=== PATIENT | female | born 1950 | race Caucasian/White ===

== ENCOUNTER 2022-11-17 16:15 | Inpatient (IN) ==
[2022-11-17 16:43] LABS: BASOPHILS % (AUTO) 0.5 % (0.2-1.0); EOSINOPHILS # (AUTO) 0.2 x10^3/uL (0.0-0.2); EOSINOPHILS % (AUTO) 2.8 % (0.9-2.9); HEMATOCRIT 31.8 % (36.0-47.0); HEMOGLOBIN 10.7 g/dL (12.0-16.0); LYMPHOCYTES # (AUTO) 1.5 X10^3/uL (1.3-2.9); LYMPHOCYTES % (AUTO) 25.7 % (21.0-51.0); MEAN CORPUSCULAR HEMOGLOBIN 28.1 pg (27.0-34.0); MEAN CORPUSCULAR HGB CONC 33.8 g/dL (33.0-35.0); MEAN PLATELET VOLUME 7.6 fL (7.4-11.0); MONOCYTES # (AUTO) 0.8 x10^3/uL (0.3-0.8); NEUTROPHILS # (AUTO) 3.4 x10^3/uL (2.2-4.8); RED BLOOD COUNT 3.82 X10^6/uL (3.5-5.4); RED CELL DISTRIBUTION WIDTH 15.9 % (11.6-16.5); WHITE BLOOD COUNT 5.9 X10^3/uL (3.6-10.0)
[2022-11-17 16:51] LABS: INR 1.13 (0.8-1.3)
[2022-11-17 16:58] LABS: ALANINE AMINOTRANSFERASE 13 Units/L (12-78); ALBUMIN 3.3 g/dL (3.4-5.0); ALKALINE PHOSPHATASE 70 Units/L (46-116); ASPARTATE AMINO TRANSFERASE 22 Units/L (15-37); BLOOD UREA NITROGEN 29 mg/dL (7-18); CALCIUM 8.8 mg/dL (8.5-10.1); CHLORIDE 102 mmol/L (98-107); COR CA(FOR HYPOALB) 9.4 mg/dL (8.5-10.1); CREATINE KINASE 73 Units/L (26-192); CREATININE 0.88 mg/dL (0.55-1.02); SODIUM 136 mmol/L (136-145); TOTAL PROTEIN 7.4 g/dL (6.4-8.2); eGFR NON BLACK RACES > 60 (>60)
--- NOTE | 2022-11-17 17:02 | DR.CP ---
HPI Time Seen Time Seen by Provider: 11/17/22 16:35 PCP Primary Care Physician: MADONNA HPI Comment HPI Comment: PATIENT IS 72YR OLD FEMALE IN ER WITH MID SUBSTERNAL CHEST PAIN RADIATING TO RIGHT CHEST THAT STARTED YESTERDAY. CURRENTLY PAIN IS 6/10. DENIES FEVER. PAIN ASSOCIATED WITH SLIGHT SOB. HISTORY LUNG CA. ON HOME O2 AT 1 TO 2L/M. PATIENT WAS DIAGNOSED WITH COVID VIRUS INFECTION AND STREP INFECTION FEW WEEKS AGO AND WAS TRATED WITH PAXLOVID AND ANTIBIOTIC. Complaint Chief Complaint Doctor Comments: CHEST PAIN SINCE YESTERDAY. Chief Complaint:: PT STATES THAT YESTERDAY SHE STARTED HAVING CHEST PAIN THAT PREVENTED HER FROM SLEEPING. SHE STATES THAT SHE TOOK HER REGULARLY SCHEDULED NEXIUM THIS AM AND IT RELIEVED HER PAIN FOR HER TO SLEEP FOR A LITTLE WHIE AND WHEN SHE WOKE UP THE CHEST PAIN WAS BACK. SHE STATES THAT SHE THEN TOOK AN 81 MG ASPIRIN AND IT HELPED HER PAIN FOR ALMOST AN HOUR AND NOW ITS HURTING AGAIN. PATIENT DESCRIBED PAIN CONSTANT WITH INTERMITTENT "PANGS THAT SHOOT BARLY OFF OF WHERE HER STERNUM IS TO THE RIGHT". PT DENIES ANY OTHER RADIATION OR ASSOCIATED SYPMTOMS. Self Treatment fo Chief Complaint: ASPIRIN 81 MG AROUND 1520 NEXIUM THIS AM COVID-19 Coronavirus risk:travel/contact w/high risk person: No Has patient experienced Coronavirus symptoms: No Reviewed Nurses Notes Review: Yes Source History Provided: Patient Mode of Arrival Mode of Arrival: Ambulatory Timing Onset of Chief Complaint: 11/16/22 PMH PMH Past Medical History: Yes Past Medical History: GERD Past Medical History Comment: SCLERADERMA, PULMONARY HYPERTENSION, FIBROMYALGIA, ILD, LUNG CA TREATED X2 IN THE LAST YEAR AND A HALF. PT STATES THAT HER LAST VISIT TO HER ONCOLOGIST WAS IN JUL 2022 AND WAS TOLD THEN THAT THERE WERE NO NEW SPOTS TO FOLLOW UP IN AND THAT APPOINTMENT IS IN 2022 Past Surgical History: Yes Surgical History: Other Past Surgical History Comment: SHOULDER SURGERY, DENTAL SURGERY, CATARACTS SURGERY Family History History of Family Medical Conditions: Yes Family Medical History: Hypertension Social History Does patient currently use any type of tobacco product: No Have you used tobacco products in the last 12 months: No Type of Tobacco Use: None Does any household member use tobacco: No Alcohol Use: None Do you use any recreational Drugs:: No Lives With: Spouse Lives Where: Home Infectious screening In the last 2 months have you had wt loss of >10#?: NO Have you had fever, night sweats or hemotysis?: No Have you traveled outside the country in the last 6 months?: No Isolation: Standard ROS Review of Systems Constitutional: Weakness and Fatigue; negative Fever Eyes: No Symptoms Reported ENTM: negative Nose Discharge or Nose Congestion Respiratoy: Short of Breath; negative Wheezing Cardiovascular: Chest Pain Gastrointestinal/Abdominal: negative Abdominal Pain, Diarrhea, Nausea or Vomiting Genitourinary: No Symptoms Reported; negative Dysuria Neurological: Weakness; negative Headache or Dizziness Musculoskeletal: negative Muscle Pain Integumentary: No Symptoms Reported; negative Rash or Juandice Hematologic/Lymphatic: negative Easy Bruising Endocrine: No Symptoms Reported; negative Increased Thirst or Increased Urine Psychiatric: No Symptoms Reported All Other Systems: Reviewed and Negative PE Vitals Vitals: Temperature 98.1 F Pulse Rate 59 Respiratory Rate 14 Blood Pressure 125/58 O2 Sat by Pulse Oximetry 100 General Limitations: No Limitations General Appearance: Alert and In Distress Head Head Exam: Normal Inspection and Atraumatic Eyes Eye exam: Normal Appearance ENT ENT Exam: Normal Exam, Normal Oropharynx, Normal External Ear Exam and TM's Normal Bilaterally Chest Chest Inspection: Normal Inspection and Symmetric Chest Wall Rise; negative Tenderness Respiratory Respiratory Exam: Respiratory Distress; negative Accessory Muscle Use or Chest Wall Tenderness Respiratory Exam: Bilateral: Rhonchi Cardiovascular Cardiovascular Exam: Regular Rate Pulse: Normal Edema: Normal Abdominal Exam Abdominal Exam: Normal Bowel Sounds and Soft; negative Tenderness Extremities Extremities Exam: Normal Inspection and Normal Capillary Refill Back Back Exam: Normal Inspection; negative (R) CVA Tenderness or (L) CVA Tenderness Neurologic Neurological Exam: Alert and Oriented X3; negative Motor Sensory Deficit Psychiatric Psychiatric Exam: Normal Affect and Normal Mood Skin Skin Exam: Intact MDM Differential Diagnosis Differential Diagnosis: Angina, Gastritis, Myocardial Infarction, Pericarditis, Pleuritis, Pneumonia, Pneumothorax and Pulmonary Embolus COURSE Treatment Treatment: SEE ORDERS DONE WHILE PATIENT WAS IN ER. LABS, CTA, EKG XRAY R EPORTS DISCUSSED WITH PATIENT. SHE WAS STARTED ON HEPARIN DRIP WHILE IN ER. PATIENT WANTS HER PULMONARY DR RADHA CONTACTED IN [facility] IN [place]. Education/Counseling Education/Counseling: Patient and Family Educated On: Diagnosis ROR Labs Reviewed Laboratory Results Reviewed?: Yes Result Diagrams: 11/17/22 16:39 11/17/22 16:39 Laboratory: WBC 5.9 X10^3/uL (3.6-10.0) 11/17/22 16:39 RBC 3.82 X10^6/uL (3.5-5.4) 11/17/22 16:39 Hgb 10.7 g/dL (12.0-16.0) L 11/17/22 16:39 Hct 31.8 % (36.0-47.0) L 11/17/22 16:39 MCV 83.0 fL (80.0-100.0) 11/17/22 16:39 MCH 28.1 pg (27.0-34.0) 11/17/22 16:39 MCHC 33.8 g/dL (33.0-35.0) 11/17/22 16:39 RDW 15.9 % (11.6-16.5) 11/17/22 16:39 Plt Count 171 X10^3/uL (150.0-450.0) 11/17/22 16:39 MPV 7.6 fL (7.4-11.0) 11/17/22 16:39 Neut % (Auto) 58.0 % (42.0-75.0) 11/17/22 16:39 Lymph % (Auto) 25.7 % (21.0-51.0) 11/17/22 16:39 [place] % (Auto) 13.0 % (0.0-13.0) 11/17/22 16:39 Eos % (Auto) 2.8 % (0.9-2.9) 11/17/22 16:39 Baso % (Auto) 0.5 % (0.2-1.0) 11/17/22 16:39 Neut # (Auto) 3.4 x10^3/uL (2.2-4.8) 11/17/22 16:39 Lymph # (Auto) 1.5 X10^3/uL (1.3-2.9) 11/17/22 16:39 [place] # (Auto) 0.8 x10^3/uL (0.3-0.8) 11/17/22 16:39 Eos # (Auto) 0.2 x10^3/uL (0.0-0.2) 11/17/22 16:39 Baso # (Auto) 0.0 X10^3/uL (0.0-0.1) 11/17/22 16:39 Absolute Nucleated RBC 0.0 /100WBC 11/17/22 16:39 PT 14.1 SECONDS (11.8-14.3) 11/17/22 16:39 INR Target Range - 11/17/22 16:39 INR 1.13 (0.8-1.3) 11/17/22 16:39 APTT 27.2 SECONDS (22.9-36.5) 11/17/22 16:39 PTT Comment - 11/17/22 16:39 D-Dimer 1.03 ug/ml (0.0-0.57) H 11/17/22 16:39 Sodium 136 mmol/L (136-145) 11/17/22 16:39 Corrected Sodium TNP 11/17/22 16:39 Potassium 4.4 mmol/L (3.5-5.1) 11/17/22 16:39 Chloride 102 mmol/L (98-107) 11/17/22 16:39 Carbon Dioxide 26.0 mmol/L (21-32) 11/17/22 16:39 BUN 29 mg/dL (7-18) H 11/17/22 16:39 Creatinine 0.88 mg/dL (0.55-1.02) 11/17/22 16:39 Est GFR (MDRD) Af Amer > 60 (>60) 11/17/22 16:39 Est GFR (MDRD) Non-Af > 60 (>60) 11/17/22 16:39 Glucose 86 mg/dL (65-99) 11/17/22 16:39 Calcium 8.8 mg/dL (8.5-10.1) 11/17/22 16:39 Corrected Calcium 9.4 mg/dL (8.5-10.1) 11/17/22 16:39 Total Bilirubin 0.20 mg/dL (0.2-1.0) 11/17/22 16:39 AST 22 Units/L (15-37) 11/17/22 16:39 ALT 13 Units/L (12-78) 11/17/22 16:39 Alkaline Phosphatase 70 Units/L (46-116) 11/17/22 16:39 Creatine Kinase 73 Units/L (26-192) 11/17/22 16:39 Troponin I High Sens 14.9 ng/L (4.0-60.0) 11/17/22 16:39 Total Protein 7.4 g/dL (6.4-8.2) 11/17/22 16:39 Albumin 3.3 g/dL (3.4-5.0) L 11/17/22 16:39 Globulin 4.1 g/dL (2.5-4.5) 11/17/22 16:39 Albumin/Globulin Ratio 0.8 Ratio (1.1-2.1) L 11/17/22 16:39 SARS-CoV-2 (PCR) Negative (NEGATIVE) 11/17/22 20:04 Influenza Type A (PCR) Negative (NEGATIVE) 11/17/22 20:04 Influenza Type B (PCR) Negative (NEGATIVE) 11/17/22 20:04 RSV (PCR) Negative (NEGATIVE) 11/17/22 20:04 XRAY XRAY Interpreted by: Radiologist (REPORTS NOTED.) and Self EKG Rate: 63 [place]: Normal Rhythm: NSR Block: None Hypertrophy: None ST: Nonsp Opioid Opioid Risk Tool Total: 0 Total Score Risk Category: Low Risk Copyright: Jean [employer] predicting aberrant behaviors Discharge Plan Diagnosis Discharge Problem: Bilateral pulmonary embolism, Chest pain Discharge Plan Patient Disposition: HOME, SELF-CARE Condition: Stable Orders to Discharge Patient Discharge Orders: Transfer (Routine); Ordered 11/17/22 Ordered By: BELKYS DILLARD
--- NOTE | 2022-11-17 18:12 | CT ---
HISTORYelevated d-dimer, chest painSTUDYCTA CHESTCOMPARISONTECHNIQUEMultiple axial images of the chest were obtained from the thoracic inlet to the upper abdomen after the administration of IV contrast. 3D reconstructions utilizing axial MIPS imaging was performed and reviewed. Dose reduction techniques including Automated Exposure Control (AEC) and adjustment of mA and kV were utilized.FINDINGSThe main pulmonary artery is prominent at 3.1 cm in diameter. The RV/LV ratio measures 1.2. There is a small pericardial effusion. There is a filling defect in the right lower lobe medial basilar segment diagnostic of a pulmonary embolus. There is a left definitive embolus in the left upper lobe in a posterior segment. There are reactive sized mediastinal and hilar lymph nodes. The airways are clear. There is some rhonchi ule wall thickening. There are peripheral parenchymal opacities in the right lower lobe and in the left upper lobe which correspond with the pulmonary emboli. There is additional opacity in the left lower lobe which is more diffuse. There is some chronic interstitial prominence suggesting chronic interstitial disease mixed with atelectasis. There is some bronchial wall thickening. There is no pleural effusion. There is cholelithiasis but no cholecystitis. There are no worrisome bone marrow lesions.IMPRESSION1. There is a right lower lobe and a left upper lobe pulmonary embolus. 2. There are peripheral opacities compatible with infarct infarcts in the right lower lobe and left upper lobe. 3. There is chronic interstitial disease and basilar atelectasis.Electronically signed by: Kvng Bowie (Nov 17, 2022 18:10:41)
--- NOTE | 2022-11-17 18:21 | EKG ---
Test Reason : chest pain Blood Pressure : */* mmHG Vent. Rate : 63 BPM Atrial Rate : 63 BPM P-R Int : 188 ms QRS Dur : 68 ms QT Int : 420 ms P-R-T Axes : 67 7 21 degrees QTc Int : 429 ms Normal sinus rhythm Nonspecific T wave abnormality Abnormal ECG No previous ECGs available Confirmed by Jordan Redmond ([id number]) on 11/19/2022 8:58:35 AM Referred By: Confirmed By: Jordan Redmond
[2022-11-17] MEDS ORDERED: TYLENOL 325 MG TAB PO ONE ×2 (20:32→20:33)
[2022-11-17] MEDS ORDERED: HEPARIN SODIUM IN D5W 25,000 UNITS/500 ML BAG IV PRN (20:39)
[2022-11-17] MEDS ORDERED: HEPARIN SODIUM IN D5W 25,000 UNITS/500 ML BAG ONE (20:53)
[2022-11-17] MEDS ORDERED: HEPARIN SODIUM INJ 5000 UNITS ONE (20:55)
[2022-11-17] MEDS ORDERED: HEPARIN SODIUM INJ 5000 UNITS IVP ONE (20:59)
--- NOTE | 2022-11-17 22:58 | RAD ---
PROCEDURE: Chest X-ray 1 View .HISTORY: Chest pain.TECHNIQUE: AP view .COMPARISON: None .TECHNICAL QUALITY: Satisfactory .FINDINGS:Heart size upper limits of normal.Mediastinum and hilar regions show no masses or lymphadenopathy .Normal central vascularity .Mild patchy consolidation left upper lobe below the proximal left clavicle. Some increased markings right base may represent scar atelectasis. No pleural fluid or masses.No acute bony abnormality .IMPRESSION:1. Left upper lobe pneumonia.2. Scar versus atelectasis right base.3. Heart size upper limits of normal.Electronically signed by: David Roberts (Nov 17, 2022 22:55:59)
--- NOTE | 2022-11-17 23:57 | EKG ---
Test Reason : SHORT OF BREATH Blood Pressure : */* mmHG Vent. Rate : 54 BPM Atrial Rate : 54 BPM P-R Int : 178 ms QRS Dur : 68 ms QT Int : 488 ms P-R-T Axes : 57 24 -8 degrees QTc Int : 462 ms Sinus bradycardia T wave abnormality, consider anterior ischemia Abnormal ECG When compared with ECG of 17-NOV-2022 18:19, (Unconfirmed) T wave inversion more evident in Anterior leads Confirmed by Jordan Redmond ([id number]) on 11/19/2022 8:57:47 AM Referred By: Confirmed By: Jordan Redmond
[2022-11-18] MEDS ORDERED: CIALIS PO SCH (00:15)
[2022-11-18] MEDS: NORCO 5/325 MG TAB PO PRN ×3 (00:20→20:22)
[2022-11-18 01:54] VITALS: BMI 22.7
[2022-11-18 04:12] LABS: BASOPHILS % (AUTO) 0.5 % (0.2-1.0); EOSINOPHILS # (AUTO) 0.2 x10^3/uL (0.0-0.2); EOSINOPHILS % (AUTO) 3.3 % (0.9-2.9); HEMATOCRIT 31.4 % (36.0-47.0); HEMOGLOBIN 10.6 g/dL (12.0-16.0); LYMPHOCYTES # (AUTO) 1.8 X10^3/uL (1.3-2.9); LYMPHOCYTES % (AUTO) 38.5 % (21.0-51.0); MEAN CORPUSCULAR HEMOGLOBIN 27.7 pg (27.0-34.0); MEAN CORPUSCULAR HGB CONC 33.8 g/dL (33.0-35.0); MEAN CORPUSCULAR VOLUME 81.9 fL (80.0-100.0); MEAN PLATELET VOLUME 7.8 fL (7.4-11.0); MONOCYTES # (AUTO) 0.6 x10^3/uL (0.3-0.8); MONOCYTES % (AUTO) 13.1 % (0.0-13.0); NEUTROPHILS # (AUTO) 2.1 x10^3/uL (2.2-4.8); NEUTROPHILS % (AUTO) 44.6 % (42.0-75.0); RED BLOOD COUNT 3.84 X10^6/uL (3.5-5.4); WHITE BLOOD COUNT 4.8 X10^3/uL (3.6-10.0)
[2022-11-18 04:22] LABS: ALANINE AMINOTRANSFERASE 10 Units/L (12-78); ALKALINE PHOSPHATASE 64 Units/L (46-116); ASPARTATE AMINO TRANSFERASE 16 Units/L (15-37); BLOOD UREA NITROGEN 23 mg/dL (7-18); CALCIUM 8.5 mg/dL (8.5-10.1); CARBON DIOXIDE 26.5 mmol/L (21-32); CHLORIDE 103 mmol/L (98-107); COR CA(FOR HYPOALB) 9.3 mg/dL (8.5-10.1); CREATINE KINASE 45 Units/L (26-192); CREATININE 0.81 mg/dL (0.55-1.02); SODIUM 139 mmol/L (136-145); TOTAL PROTEIN 6.9 g/dL (6.4-8.2); eGFR NON BLACK RACES > 60 (>60)
--- NOTE | 2022-11-18 05:55 | EKG ---
Test Reason : SHORT OF BREATH Blood Pressure : */* mmHG Vent. Rate : 51 BPM Atrial Rate : 51 BPM P-R Int : 194 ms QRS Dur : 72 ms QT Int : 460 ms P-R-T Axes : 68 13 3 degrees QTc Int : 423 ms Sinus bradycardia Anterior infarct , age undetermined T wave abnormality, consider lateral ischemia Abnormal ECG When compared with ECG of 17-NOV-2022 23:49, (Unconfirmed) T wave inversion now evident in Lateral leads Confirmed by Jordan Redmond ([id number]) on 11/19/2022 8:57:09 AM Referred By: Confirmed By: Jordan Redmond
[2022-11-18] MEDS: CIALIS PO SCH ×2 (06:14→11:44)
[2022-11-18] MEDS: ALDACTONE TAB 25 MG PO SCH (08:20)
[2022-11-18] MEDS: CELEXA PO SCH (08:21)
[2022-11-18] MEDS: NexIUM PO SCH (08:21)
[2022-11-18] MEDS ORDERED: [UNRECOGNIZED DRUG - OTHER] IN SCH (09:00)
[2022-11-18] MEDS ORDERED: TREPROSTINIL IN SCH (09:00)
[2022-11-18] MEDS ORDERED: POTASSIUM CHL 40 MEQ/NS 0.45% 500 ML IV PRN (09:55)
[2022-11-18] MEDS ORDERED: K-DUR TAB 20 MEQ PO PRN (09:55)
[2022-11-18] MEDS ORDERED: POTASSIUM CHL 60 MEQ/NS 0.45% 500 ML IV PRN (09:55)
[2022-11-18] MEDS ORDERED: MICRO K EXTEN CAP 10 MEQ PO PRN (09:55)
[2022-11-18] MEDS ORDERED: K-RIDER 10 MEQ/NS 100 ML 10 MEQ/100 ML BAG IV PRN (09:55)
[2022-11-18] MEDS ORDERED: KLOR-CON PO PRN (09:55)
[2022-11-18] MEDS ORDERED: POTASSIUM CHLORIDE LIQ 20 MEQ UDC PO PRN (09:55)
[2022-11-18] MEDS ORDERED: NS 250 ML IV 250 ML IV PRN (11:00)
[2022-11-18] MEDS ORDERED: NS 250 ML IV 250 ML IV ONE (11:37)
[2022-11-18] MEDS: ELIQUIS PO SCH ×2 (11:43→20:22)
[2022-11-18] MEDS: MAGNESIUM SULFATE 1 GRAM/100 mL PREMIX 1 G/100 ML BAG IV PRN ×2 (11:48→14:21)
--- NOTE | 2022-11-18 13:40 | DR.H&P ---
H&P History & Physical for Day of: H&P Date: 11/18/22 Chief Complaint Chief Complaint: Chest pain Allergies Allergies Allergy/AdvReac Type Severity Reaction Status Date / Time Sulfa (Sulfonamide Allergy Verified 11/17/22 16:46 Antibiotics) [SULFA] History of Present Illness History of Present Illness: This is a pleasant 72-year-old white female who pres ented to the [facility] emergency department last night with complaints of chest pain. Chest pain started yesterday evening and she thought it may have been related to acid reflux. She took some Nexium that did not help resolve the pain much. She did take some aspirin and also Tylenol 3 that did not help the pain improve much. He did have a wheeze off for maybe an hour but it came back. She got scared because it is subsided, to the emergency department. She does report a history of lung cancer in which she had 2 treatments for in the last year. She also has a history of interstitial lung disease. CT scan of her lungs was done last night and it showed a right lower lobe infarct with pulmonary embolus present. There is also 1 seen in the left upper lobe as well. ER physician called me and discussed her case with me. We agreed that patient would benefit from being admitted to ICU started on a heparin drip. This morning she is still having some chest pain and is anxious about the pulmonary emboli. He also reports recent bout with strep throat and COVID-19 in the last week or 2. I discussed treating the patient with outpatient Ankush and she is agreeable to that. We will keep her today since she is continuing to have some chest pain. We will transition her from heparin drip to p.o. Eliquis today. Plan on discharging her tomorrow morning as long as we can get her pain under control. Past Medical History Past Medical History: GERD Additional Medical History: Interstitial lung disease, pulmonary hypertension and depression Past Surgical History Surgical History: Ortho Surgery Family History Family Medical History: Cancer, [place], Heart Failure and Hypertension Social History Does patient currently use any type of tobacco product: No Have you used tobacco products in the last 12 months: No Type of Tobacco Use: None Does any household member use tobacco: No Alcohol Use: None Drug Use: None Medications Home Medications: Sulfa (Sulfonamide Antibiotics) [SULFA] Allergy (Verified 11/17/22 16:46) CONTINUE taking the following medications citalopram 20 mg tablet 1 tab PO QDAY 11/17/22 [History] esomeprazole magnesium 40 mg capsule,delayed release 1 cap PO QAM 11/17/22 [History] spironolactone 25 mg tablet 1 tab PO QDAY 11/17/22 [History] tadalafil (pulm. hypertension) 20 mg tablet (pulmonary hypertension) 1 tab PO Q OTHER DAY 11/17/22 [History] treprostinil 1.74 mg/2.9 mL (0.6 mg/mL) solution w/nebulizer accessory ([employer] Refill Kit) 1 ml inhalation QID 11/17/22 [History] Labs Result Diagrams: 11/18/22 03:40 11/18/22 03:40 Labs: Laboratory WBC 4.8 X10^3/uL (3.6-10.0) 11/18/22 03:40 RBC 3.84 X10^6/uL (3.5-5.4) 11/18/22 03:40 Hgb 10.6 g/dL (12.0-16.0) L 11/18/22 03:40 Hct 31.4 % (36.0-47.0) L 11/18/22 03:40 MCV 81.9 fL (80.0-100.0) 11/18/22 03:40 MCH 27.7 pg (27.0-34.0) 11/18/22 03:40 MCHC 33.8 g/dL (33.0-35.0) 11/18/22 03:40 RDW 16.0 % (11.6-16.5) 11/18/22 03:40 Plt Count 141 X10^3/uL (150.0-450.0) L 11/18/22 03:40 MPV 7.8 fL (7.4-11.0) 11/18/22 03:40 Neut % (Auto) 44.6 % (42.0-75.0) 11/18/22 03:40 Lymph % (Auto) 38.5 % (21.0-51.0) 11/18/22 03:40 [place] % (Auto) 13.1 % (0.0-13.0) H 11/18/22 03:40 Eos % (Auto) 3.3 % (0.9-2.9) H 11/18/22 03:40 Baso % (Auto) 0.5 % (0.2-1.0) 11/18/22 03:40 Neut # (Auto) 2.1 x10^3/uL (2.2-4.8) L 11/18/22 03:40 Lymph # (Auto) 1.8 X10^3/uL (1.3-2.9) 11/18/22 03:40 [place] # (Auto) 0.6 x10^3/uL (0.3-0.8) 11/18/22 03:40 Eos # (Auto) 0.2 x10^3/uL (0.0-0.2) 11/18/22 03:40 Baso # (Auto) 0.0 X10^3/uL (0.0-0.1) 11/18/22 03:40 Absolute Nucleated RBC 0.1 /100WBC 11/18/22 03:40 PT 14.1 SECONDS (11.8-14.3) 11/17/22 16:39 INR Target Range - 11/17/22 16:39 INR 1.13 (0.8-1.3) 11/17/22 16:39 APTT 54.6 SECONDS (22.9-36.5) H 11/18/22 10:18 PTT Comment - 11/18/22 10:18 D-Dimer 1.03 ug/ml (0.0-0.57) H 11/17/22 16:39 Sodium 139 mmol/L (136-145) 11/18/22 03:40 Corrected Sodium TNP 11/18/22 03:40 Potassium 3.7 mmol/L (3.5-5.1) 11/18/22 03:40 Chloride 103 mmol/L (98-107) 11/18/22 03:40 Carbon Dioxide 26.5 mmol/L (21-32) 11/18/22 03:40 BUN 23 mg/dL (7-18) H 11/18/22 03:40 Creatinine 0.81 mg/dL (0.55-1.02) 11/18/22 03:40 Est GFR (MDRD) Af Amer > 60 (>60) 11/18/22 03:40 Est GFR (MDRD) Non-Af > 60 (>60) 11/18/22 03:40 Glucose 79 mg/dL (65-99) 11/18/22 03:40 Calcium 8.5 mg/dL (8.5-10.1) 11/18/22 03:40 Corrected Calcium 9.3 mg/dL (8.5-10.1) 11/18/22 03:40 Magnesium 1.5 mg/dL (2.0-2.9) L 11/18/22 03:40 Total Bilirubin 0.30 mg/dL (0.2-1.0) 11/18/22 03:40 AST 16 Units/L (15-37) 11/18/22 03:40 ALT 10 Units/L (12-78) L 11/18/22 03:40 Alkaline Phosphatase 64 Units/L (46-116) 11/18/22 03:40 Creatine Kinase 45 Units/L (26-192) 11/18/22 03:40 Troponin I High Sens 20.7 ng/L (4.0-60.0) 11/18/22 03:40 Total Protein 6.9 g/dL (6.4-8.2) 11/18/22 03:40 Albumin 3.0 g/dL (3.4-5.0) L 11/18/22 03:40 Globulin 3.9 g/dL (2.5-4.5) 11/18/22 03:40 Albumin/Globulin Ratio 0.8 Ratio (1.1-2.1) L 11/18/22 03:40 SARS-CoV-2 (PCR) Negative (NEGATIVE) 11/17/22 20:04 Influenza Type A (PCR) Negative (NEGATIVE) 11/17/22 20:04 Influenza Type B (PCR) Negative (NEGATIVE) 11/17/22 20:04 RSV (PCR) Negative (NEGATIVE) 11/17/22 20:04 Review of Systems Constitutional: No Symptoms Reported Eyes: No Symptoms Reported ENT: No Symptoms Reported Respiratory: No Symptoms Reported Cardiovascular: Chest Pain Gastrointestinal: Other (Acid reflux) Genitourinary: No Symptoms Reported Musculoskeletal: No Symptoms Reported Skin: No Symptoms Reported Neurological: No Symptoms Reported Physical Exam Vital Signs: Temperature 98.3 F Pulse Rate 55 Respiratory Rate 16 Blood Pressure 99/48 O2 Sat by Pulse Oximetry 100 Oriented: Normal Eyes: Normal Ear: Normal Nose: Normal Throat: Normal Respiratory: Diminished Throughout Cardiovascular: Normal : Normal Auscultation: Bowel Sounds: Normal Palpation: Normal Tenderness: Normal Skin: Normal Musculoskeletal: Normal Psychiatric: Anxiety Mood Description: Anxious Affect: Normal Speech Pattern: Clear and Appropriate Assessment/Plan (1) Bilateral pulmonary embolism: Status: Acute Plan: Transition patient from heparin drip to p.o. Eliquis 5 mg p.o. twice daily. Plan on likely discharge home tomorrow. (2) Chest pain: Status: Acute Plan: Pain control as needed. (3) Anxiety: Status: Acute Plan: I will get the patient as needed Valium as needed. (4) History of depression: Status: Acute Plan: Continue the patient citalopram (5) GERD (gastroesophageal reflux disease): Status: Acute Plan: Continues omeprazole (6) Pulmonary hypertension: Status: Acute Plan: Continue tadalafil. We will hold the patient's Tyvaso at this time. Review H&P Reviewed: Yes Patient was examined?: Yes
[2022-11-19 04:57] LABS: BASOPHILS % (AUTO) 0.5 % (0.2-1.0); EOSINOPHILS # (AUTO) 0.2 x10^3/uL (0.0-0.2); EOSINOPHILS % (AUTO) 3.9 % (0.9-2.9); HEMATOCRIT 31.1 % (36.0-47.0); HEMOGLOBIN 10.5 g/dL (12.0-16.0); LYMPHOCYTES # (AUTO) 1.5 X10^3/uL (1.3-2.9); MEAN CORPUSCULAR HGB CONC 33.7 g/dL (33.0-35.0); MEAN PLATELET VOLUME 7.6 fL (7.4-11.0); MONOCYTES # (AUTO) 0.7 x10^3/uL (0.3-0.8); MONOCYTES % (AUTO) 14.9 % (0.0-13.0); NEUTROPHILS # (AUTO) 2.3 x10^3/uL (2.2-4.8); NEUTROPHILS % (AUTO) 48.7 % (42.0-75.0); RED BLOOD COUNT 3.74 X10^6/uL (3.5-5.4); RED CELL DISTRIBUTION WIDTH 16.1 % (11.6-16.5); WHITE BLOOD COUNT 4.7 X10^3/uL (3.6-10.0)
[2022-11-19 05:11] LABS: ALANINE AMINOTRANSFERASE 10 Units/L (12-78); ALBUMIN 2.9 g/dL (3.4-5.0); ALKALINE PHOSPHATASE 61 Units/L (46-116); ASPARTATE AMINO TRANSFERASE 14 Units/L (15-37); BLOOD UREA NITROGEN 23 mg/dL (7-18); CALCIUM 8.1 mg/dL (8.5-10.1); CARBON DIOXIDE 27.9 mmol/L (21-32); CHLORIDE 105 mmol/L (98-107); CREATININE 0.91 mg/dL (0.55-1.02); MAGNESIUM 2.1 mg/dL (2.0-2.9); SODIUM 138 mmol/L (136-145); TOTAL PROTEIN 6.7 g/dL (6.4-8.2); eGFR NON BLACK RACES > 60 (>60)
[2022-11-19] MEDS: NexIUM PO SCH (08:41)
[2022-11-19] MEDS: ALDACTONE TAB 25 MG PO SCH (08:41)
[2022-11-19] MEDS: ELIQUIS PO SCH (08:41)
[2022-11-19] MEDS: CELEXA PO SCH (08:41)
[2022-11-19] MEDS ORDERED: MILK OF MAGNESIA PO ONE (10:39)
[2022-11-19] MEDS ORDERED: COLACE CAP 100 MG PO ONE (10:39)
[2022-11-19 11:05] VITALS: BP 110/54
== END 2022-11-19 12:30 | disposition home or self-care (01) | DRG 176 ==
LOC: ER 16:15 → ICU 21:46
PROVIDERS: ADMIT Family Medicine; ATTEND Family Medicine
DX: Z20.822 Contact with and (suspected) exposure to COVID-19; Z99.81 Dependence on supplemental oxygen; I26.99 Other pulmonary embolism without acute cor pulmonale; F41.8 Other specified anxiety disorders; R07.89 Other chest pain; R94.31 Abnormal electrocardiogram [ECG] [EKG]; Z86.59 Personal history of other mental and behavioral disorders; I27.20 Pulmonary hypertension, unspecified; Z85.118 Personal history of other malignant neoplasm of bronchus and lung; R79.1 Abnormal coagulation profile; K21.9 Gastro-esophageal reflux disease without esophagitis; R06.02 Shortness of breath